=== PATIENT | male | born 1940 | race African-American/Black ===

== ENCOUNTER 2020-09-19 01:20 | Emergency (ER) | payer MEDICARE, SELFPAY ==
[~2020-09-19] VITALS: Ht 175.3 cm; Wt 72.6 kg
[2020-09-19 01:45] VITALS: BP_SYST 97
--- NOTE | 2020-09-19 01:45 | NUR ---
Patient to ER bed 8 to gown for evaluation. Side rails up.
--- NOTE | 2020-09-19 01:48 | NUR ---
PT AAO AND WAS BIB AMBULANCE FOR ABDOMINAL PAIN FOR THE LAST 3-4 DAYS AFTER BEING EXPOSED TO POSITIVE [facility]. PT ALSO REPORTS N/V/D WITH FEVER AND IT IS CURRENTLY 101.5.
--- NOTE | 2020-09-19 01:50 | NUR ---
ER Dr. SALAZAR at bedside examining patient.
--- NOTE | 2020-09-19 02:15 | NUR ---
COVID SWAB COMPLETED AND SENT TO LAB
[2020-09-19] MEDS ORDERED: NACL 0.9% 1,000 ML IV ONE (02:45)
[2020-09-19] MEDS ORDERED: ACETAMINOPHEN 500 MG TABLET PO ONE (02:45)
--- NOTE | 2020-09-19 03:00 | NUR ---
Pt taken to Radiology in stable condition
[2020-09-19 03:47] LABS: BASOPHILS % (AUTO) 0.6 % (0.0-2.0); HEMOGLOBIN 13.4 g/dL (14.0-18.0); LYMPHOCYTES # (AUTO) 0.5 K/uL (1.0-5.5); LYMPHOCYTES % (AUTO) 8.6 % (20.5-51.5); MEAN CORPUSCULAR HEMOGLOBIN 29 pg (27-31); MEAN CORPUSCULAR HGB CONC 33 % (32-36); MEAN CORPUSCULAR VOLUME 90 fL (79.0-98.0); MONOCYTES # (AUTO) 0.6 K/uL (0.0-1.0); MONOCYTES % (AUTO) 11.1 % (1.7-9.3); NEUTROPHILS # (AUTO) 4.5 K/uL (1.8-7.7); NEUTROPHILS % (AUTO) 79.7 % (40.0-70.0); PLATELET COUNT (AUTO) 145 K/uL (130-430); RED BLOOD CELL COUNT(AUTO) 4.56 MIL/uL (4.2-6.2); RED CELL DISTRIBUTION WIDTH 15.1 % (9.0-15.0); WHITE BLOOD COUNT (AUTO) 5.6 K/uL (4.8-10.8)
[2020-09-19 04:00] LABS: ANION GAP 14 (5-15); CALCIUM 8.4 mg/dL (8.4-11.0); CHLORIDE 100 mmol/L (98-107); CREATININE 2.58 mg/dL (0.55-1.30); GLUCOSE 128 mg/dL (70-99); POTASSIUM 4.1 mmol/L (3.5-5.1); SODIUM SERUM 139 mmol/L (136-145); UREA NITROGEN, BLOOD 31 mg/dL (8-21)
--- NOTE | 2020-09-19 04:00 | NUR ---
Radiology study well tolerated. VSS
[2020-09-19 04:06] LABS: ALANINE AMINOTRANSFERASE 21 U/L (12-78); ALBUMIN 3.4 g/dL (3.4-4.8); ASPARTATE AMINOTRANSFERASE 34 U/L (10-37); TOTAL BILIRUBIN 0.7 mg/dL (0.0-1.0)
[2020-09-19] MEDS ORDERED: AMLO5TAB4 PO (05:08)
[2020-09-19] MEDS ORDERED: ERGO500020 PO (05:09)
[2020-09-19] MEDS ORDERED: CALC0.258 PO (05:10)
[2020-09-19] MEDS ORDERED: ATOR20TA64 PO (05:11)
--- NOTE | 2020-09-19 05:12 | NUR ---
Medication reconciliation completed with information provided by patient. Any prior medication reconciliation on file was reviewed and corrected.
--- NOTE | 2020-09-19 06:12 | NUR ---
updated pt's son by phone. awaiting raphine to call with [facility] and transfer info
--- NOTE | 2020-09-19 06:39 | NUR ---
TRANSFER INFO [facility] ACCEPTING: Dr. Freeman REPORT #: [phone] S ETA [id number] spoke to Jessie
--- NOTE | 2020-09-19 06:47 | NUR ---
Dr. Encarnacion bedside to update pt on [facility]
--- NOTE | 2020-09-19 07:10 | NUR ---
Gave report to Con at [facility] ER, Transport ETA [id number]
--- NOTE | 2020-09-19 07:41 | NUR ---
Patient to be transferred to [facility]. Is being transferred due to higher level of care. Receiving facility has accepting physician and available space. ER physician has signed transfer form. Patient or responsible constitution party has agreed to transfer and signed form. Patient belongings inventoried and will be sent with patient. Copy of nursing notes, lab reports, EKG, Physicians Orders and X-rays to be sent with patient. ETA is 30 min .
[2020-09-19 07:52] VITALS: BP_SYST 106
== END 2020-09-19 07:41 | disposition short-term general hospital (02) ==
LOC: SED 01:20 → EDBD 01:20 → SED 07:41
DX: U07.1 COVID-19 (principal); N17.9 Acute kidney failure, unspecified; Z71.6 Tobacco abuse counseling; Z79.899 Other long term (current) drug therapy
CPT/HCPCS: 36415; 71250; 74176; 76376; 80053; 83605; 85025; 87040; 87426; 96360; 99285; J7030